=== PATIENT | male | born 1950 | race Caucasian/White ===

== ENCOUNTER 2021-07-06 08:53 | Observation (INO) | payer MEDICARE, OTHER ==
[2021-07-06] MEDS ORDERED: Aspirin Chewable 81 MG TAB ONE (09:41)
[2021-07-06] MEDS ORDERED: Nitroglycerin 2% Ointment 1 INCH/1 GM Packet ONE (09:41)
[2021-07-06 10:11] LABS: #Basophils 0.1 10x3/uL (0.0-0.2); #Eosinphils 0.3 10x3/uL (0.0-0.5); #Monocytes 0.7 10x3/uL (0.0-1.1); #Neutrophils 4.5 10x3/uL (1.5-8.4); %Basophils 1.3 % (0.0-2.0); %Eosinophils 4.1 % (0.0-6.0); %Lymphocytes 18.8 % (18.0-47.0); %Monocytes 9.8 % (0.0-10.0); %Neutrophils 65.6 % (40.0-75.0); Hemoglobin 13.2 g/dL (13.5-17.5); Mean Corpuscular Hemoglobin 26.8 pg (27.0-33.0); Mean Corpuscular Volume 83.6 fl (81.2-95.1); Mean Platelet Volume 9.9 fl (7.4-10.4); Platelet Count 181 10x3/uL (150-450); RBC Distribution Width 13.7 % (11.5-14.5); Red Blood Cell (RBC) Count 4.93 10x6/uL (4.32-5.72); White Blood Cell (WBC) Count 6.9 10x3/uL (3.5-10.5)
[2021-07-06 10:23] LABS: ALT (SGPT) 36 U/L (8-55); AST (SGOT) 29 U/L (5-34); Albumin 4.4 g/dL (3.4-4.8); Alkaline Phosphatase 77 U/L (40-110); Anion Gap 18 mmol/L (10-20); BUN (Urea Nitrogen) 12 mg/dL (8.4-25.7); Bilirubin, Total 1.1 mg/dL (0.2-1.2); CK (CPK) 64 U/L (30-200); Calc. Creatinine Clearance 0 mL/min (70-130); Calcium 9.2 mg/dL (7.8-10.44); Carbon Dioxide 22 mmol/L (23-31); Chloride 107 mmol/L (98-107); Globulin 2.6 g/dL (2.4-3.5); Glucose 135 mg/dL (80-115); Lipase 14 U/L (8-78); Potassium 4.2 mmol/L (3.5-5.1); Sodium 143 mmol/L (136-145)
[2021-07-06 12:44] LABS: Troponin I Less than 0.010 ng/mL (< 0.028)
[2021-07-06] MEDS ORDERED: Ondansetron ODT 4 MG TAB PO PRN (12:56)
[2021-07-06] MEDS ORDERED: Bisacodyl 5 MG TAB PO PRN (12:56)
[2021-07-06] MEDS ORDERED: Acetaminophen 325 MG TAB PO PRN (12:56)
[2021-07-06] MEDS ORDERED: Senokot S 8.6-50 MG TAB PO PRN (12:56)
[2021-07-06] MEDS ORDERED: Acetaminophen 650 MG Suppository PR PRN (12:56)
[2021-07-06] MEDS ORDERED: Nitroglycerin 0.4 MG TAB (25 Tab Bottle) SL PRN (12:56)
[2021-07-06] MEDS ORDERED: Ondansetron PF 4 MG/2 ML Vial IVP PRN (12:56)
[2021-07-06] MEDS ORDERED: Aspirin 325 MG TAB PO SCH (13:00)
[2021-07-06 13:32] LABS: Troponin I Less than 0.010 ng/mL (< 0.028)
[2021-07-06 13:47] VITALS: BMI 47.2
[2021-07-06 16:02] LABS: Troponin I Less than 0.010 ng/mL (< 0.028)
[2021-07-07] MEDS: Clindamycin 150 MG CAP PO SCH ×4 (00:13→17:53)
[2021-07-07 05:31] LABS: #Basophils 0.1 10x3/uL (0.0-0.2); #Eosinphils 0.3 10x3/uL (0.0-0.5); #Monocytes 0.9 10x3/uL (0.0-1.1); #Neutrophils 3.7 10x3/uL (1.5-8.4); %Basophils 1.2 % (0.0-2.0); %Monocytes 14.4 % (0.0-10.0); %Neutrophils 56.1 % (40.0-75.0); Hemoglobin 12.1 g/dL (13.5-17.5); Mean Corpuscular HGB CONC 32.9 g/dL (32.0-36.0); Mean Corpuscular Hemoglobin 27.1 pg (27.0-33.0); Mean Corpuscular Volume 82.5 fl (81.2-95.1); Platelet Count 160 10x3/uL (150-450); Red Blood Cell (RBC) Count 4.46 10x6/uL (4.32-5.72); White Blood Cell (WBC) Count 6.5 10x3/uL (3.5-10.5)
[2021-07-07 05:54] LABS: Anion Gap 14 mmol/L (10-20); BUN (Urea Nitrogen) 11 mg/dL (8.4-25.7); Calc. Creatinine Clearance 184 mL/min (70-130); Carbon Dioxide 22 mmol/L (23-31); Cardiac Risk 4.8 (Less than 4.5); Chloride 108 mmol/L (98-107); Cholesterol 149 mg/dl (< 200 Desired); Glucose 115 mg/dL (80-115); HDL Cholesterol 31 mg/dL (>60 Neg Risk); LDL Cholesterol, Calculated 98 mg/dL; Potassium 3.7 mmol/L (3.5-5.1); Sodium 140 mmol/L (136-145); Triglycerides 98 mg/dL (Less than 150)
[2021-07-07] MEDS: Aspirin Chewable 81 MG TAB PO SCH (08:31)
[2021-07-07] MEDS: Saccharomyces boulardii 250 MG CAP PO SCH (08:52)
[2021-07-07] MEDS: Magnesium Oxide 250 MG TAB PO SCH (20:13)
[2021-07-07] MEDS: Doxazosin 2 MG TAB PO SCH (20:15)
[2021-07-07] MEDS ORDERED: Losartan Potassium 50 MG TAB PO SCH (21:00)
[2021-07-07] MEDS ORDERED: Atorvastatin Calcium 40 MG TAB PO SCH (21:00)
[2021-07-07] MEDS ORDERED: Loratadine 10 MG TAB PO SCH (21:00)
[2021-07-08] MEDS: Clindamycin 150 MG CAP PO SCH ×3 (02:06→12:10)
[2021-07-08 04:32] LABS: #Basophils 0.1 10x3/uL (0.0-0.2); #Eosinphils 0.2 10x3/uL (0.0-0.5); #Monocytes 0.7 10x3/uL (0.0-1.1); #Neutrophils 3.1 10x3/uL (1.5-8.4); %Basophils 1.3 % (0.0-2.0); %Lymphocytes 27.9 % (18.0-47.0); %Monocytes 11.7 % (0.0-10.0); %Neutrophils 54.9 % (40.0-75.0); Hemoglobin 12.2 g/dL (13.5-17.5); Mean Corpuscular HGB CONC 31.6 g/dL (32.0-36.0); Mean Corpuscular Hemoglobin 26.7 pg (27.0-33.0); Mean Corpuscular Volume 84.5 fl (81.2-95.1); Mean Platelet Volume 10.3 fl (7.4-10.4); Platelet Count 173 10x3/uL (150-450); RBC Distribution Width 13.9 % (11.5-14.5); Red Blood Cell (RBC) Count 4.57 10x6/uL (4.32-5.72); White Blood Cell (WBC) Count 5.6 10x3/uL (3.5-10.5)
[2021-07-08 04:43] LABS: Anion Gap 16 mmol/L (10-20); BUN (Urea Nitrogen) 11 mg/dL (8.4-25.7); Calc. Creatinine Clearance 190 mL/min (70-130); Calcium 9.1 mg/dL (7.8-10.44); Carbon Dioxide 23 mmol/L (23-31); Chloride 107 mmol/L (98-107); Glucose 116 mg/dL (80-115); Potassium 3.7 mmol/L (3.5-5.1); Sodium 142 mmol/L (136-145)
[2021-07-08 04:57] LABS: Thyroid Stimulating Hormone 2.5539 uIU/mL (0.35-4.94)
[2021-07-08] MEDS ORDERED: Enoxaparin Sodium 40 MG/0.4 ML SYRINGE SC SCH (09:00)
[2021-07-08] MEDS ORDERED: Empagliflozin 25 MG TAB PO SCH (09:00)
[2021-07-08] MEDS ORDERED: Amlodipine 10 MG TAB PO SCH (09:00)
[2021-07-08] MEDS: Saccharomyces boulardii 250 MG CAP PO SCH (09:47)
[2021-07-08] MEDS: Magnesium Oxide 250 MG TAB PO SCH (09:47)
[2021-07-08] MEDS: Doxazosin 2 MG TAB PO SCH (09:48)
[2021-07-08] MEDS: Aspirin Chewable 81 MG TAB PO SCH (09:48)
[2021-07-08] MEDS ORDERED: Potassium Chloride 20 MEQ TAB PO SCH (11:00)
[2021-07-08 12:18] VITALS: BP 145/70; TEMP 98
[2021-07-08 15:29] LABS: T4 7.3 ug/dL (4.87-11.72)
[2021-07-09] MEDS ORDERED: predniSONE 20 MG TAB PO SCH (08:00)
== END 2021-07-08 16:26 | disposition home or self-care (01) ==
LOC: CSHERS 08:53 → CSHTELE 13:31
PROVIDERS: ADMIT Internal Medicine; ATTEND Internal Medicine
DX: R07.89 Other chest pain (principal); I10 Essential (primary) hypertension; E78.5 Hyperlipidemia, unspecified; E11.9 Type 2 diabetes mellitus without complications; I31.3 Pericardial effusion (noninflammatory); K21.9 Gastro-esophageal reflux disease without esophagitis; Z79.899 Other long term (current) drug therapy; Z79.82 Long term (current) use of aspirin; Z79.84 Long term (current) use of oral hypoglycemic drugs
CPT/HCPCS: 71045; 71275; 80048 ×2; 80053; 80061; 82550; 83690; 84436; 84443; 84484 ×2; 85025 ×3; 85379; 85652; 93005 ×3; 93306; 93971; 94760; 99285; G0378 ×5; 36415; 93010; J1650

== ENCOUNTER 2021-08-01 09:11 | Outpatient (CLI) | payer MEDICARE, OTHER | END 2021-08-01 09:12 | disposition home or self-care (01) | LOC: CSHWCC 09:11 | PROVIDERS: ATTEND Nurse Practitioner Family | DX: I87.2 Venous insufficiency (chronic) (peripheral) (principal); E11.65 Type 2 diabetes mellitus with hyperglycemia; E78.2 Mixed hyperlipidemia; G47.39 Other sleep apnea; I10 Essential (primary) hypertension; I25.84 Coronary atherosclerosis due to calcified coronary lesion; I89.0 Lymphedema, not elsewhere classified; R60.0 Localized edema | CPT/HCPCS: 97139; G0463; 99203 ==

== ENCOUNTER 2023-01-15 08:30 | Outpatient (CLI) | payer MEDICARE, OTHER ==
[2023-01-15] MEDS ORDERED: Magnevist 469MG/ML 20 ML VIAL ONE (15:28)
== END 2023-01-15 08:31 | disposition home or self-care (01) ==
LOC: CSHMRI 08:30
PROVIDERS: ATTEND Specialist
DX: K86.2 Cyst of pancreas (principal); N28.1 Cyst of kidney, acquired; K76.89 Other specified diseases of liver
CPT/HCPCS: 74183; 82565; A9579